=== PATIENT | female | born 1935 | race Two or more races ===

== ENCOUNTER 2022-02-04 11:21 | Emergency (ER) | payer MEDICAID, OTHER ==
[~2022-02-04] VITALS: Ht 147.3 cm; Wt 44.5 kg
--- NOTE | 2022-02-04 11:30 | NUR ---
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 ON 2 LPM VIA NC. ALERT AND ORIENTED X 4. DENIES ANY PAIN AT THIS TIME. KEPT COMFORTABLE, WILL CONTINUE TO MONITOR ACCORDINGLY. CONNECTED TO THE MONITOR AND PULSE OX.
[2022-02-04] MEDS ORDERED: MEGE40TA5 PO (12:00)
[2022-02-04] MEDS ORDERED: AMLO2.5T4 PO (12:00)
[2022-02-04] MEDS ORDERED: LISI40TA13 PO (12:00)
[2022-02-04] MEDS ORDERED: *INS REG3 IJ (12:00)
[2022-02-04] MEDS ORDERED: ASPI-1169 PO (12:00)
[2022-02-04] MEDS ORDERED: ATOR80TA PO (12:00)
[2022-02-04] MEDS ORDERED: SENN-175 PO (12:00)
--- NOTE | 2022-02-04 12:00 | NUR ---
MOVE SHEET SUBMITTED.
--- NOTE | 2022-02-04 12:20 | NUR ---
Covid swab collected and sent to lab
--- NOTE | 2022-02-04 12:28 | NUR ---
urine collected and sent to lab
[2022-02-04 12:32] LABS: ALANINE AMINOTRANSFERASE 39 U/L (12-78); ALBUMIN 2.9 g/dL (3.4-5.0); ALKALINE PHOSPHATASE 89 U/L (46-116); ASPARTATE AMINOTRANSFERASE 37 U/L (15-37); BILIRUBIN,DIRECT 0.1 mg/dL (0.0-0.2); BILIRUBIN,TOTAL 0.3 mg/dL (0.2-1.0); CALCIUM, SERUM 8.8 mg/dL (8.5-10.1); CARBON DIOXIDE 27 mmol/L (21-32); CHLORIDE 92 mmol/L (98-107); CREATININE 2.8 mg/dL (0.6-1.3); GLUCOSE 291 mg/dL (74-106); LIPASE 144 U/L (73-393); POTASSIUM 4.4 mmol/L (3.5-5.1); SODIUM SERUM 130 mmol/L (136-145); TOTAL PROTEIN, SERUM 7.3 g/dL (6.4-8.2); UREA NITROGEN, BLOOD 39 mg/dL (7-18)
--- NOTE | 2022-02-04 12:37 | NUR ---
LAB CALLED [facility]
--- NOTE | 2022-02-04 12:45 | NUR ---
Wheeled patient via [place] accompanied by [facility] for ct.
--- NOTE | 2022-02-04 13:01 | NUR ---
patient came back from ct
[2022-02-04 13:05] LABS: BASOPHILS % (AUTO) 0.4 % (0.0-2.0); EOSINOPHILS % (AUTO) 0.7 % (0.0-6.0); HEMATOCRIT 36 % (33-45); HEMOGLOBIN 12.1 g/dL (11.5-14.8); LYMPHOCYTES # (AUTO) 1.8 K/uL (0.8-4.8); LYMPHOCYTES % (AUTO) 19.3 % (20.0-44.0); MEAN CORPUSCULAR HGB CONC 34 g/dl (31.0-36.0); MEAN CORPUSCULAR VOLUME 92 fL (82-100); MONOCYTES # (AUTO) 0.9 K/uL (0.1-1.30); MONOCYTES % (AUTO) 9.2 % (2.0-12.0); NEUTROPHILS # (AUTO) 6.6 K/uL (1.8-8.9); NEUTROPHILS % (AUTO) 70.4 % (43.0-81.0); PLATELET COUNT (AUTO) 264 K/uL (150-450); WHITE BLOOD COUNT (AUTO) 9.4 K/uL (4.3-11.0)
--- NOTE | 2022-02-04 13:15 | NUR ---
RECEIVING MD DR GARCIAS SPOKE WITH DR GOMEZ AND WANTS REPEAT TROPONIN AT 1500 PRIOR TO TRANSFER
[2022-02-04 13:30] LABS: BILIRUBIN,URINE NEGATIVE (NEGATIVE); COLOR,URINE YELLOW (YELLOW); LEUKOCYTE ESTERASE ,URINE MODERATE (NEGATIVE); NITRITE, URINE NEGATIVE (NEGATIVE); PROTEIN,URINE TRACE mg/dl (NEGATIVE); UGLUCOSE NEGATIVE (NEGATIVE); UROBILINOGEN,URINE 0.2 EU/dL (0.2)
--- NOTE | 2022-02-04 13:34 | NUR ---
BRIDGET FROM [facility] REQUESTING FACE SHEET TO FAX IS [phone] TEL #
[2022-02-04 13:53] LABS: BACTERIA,URINE Moderate /HPF (None Seen); WBC,URINE 51-80 /HPF (0-3)
[2022-02-04 13:54] LABS: SQUAMOUS EPITHELIAL CELL,UR Few /HPF (None Seen)
--- NOTE | 2022-02-04 17:04 | NUR ---
PT ACCEPTED TO [facility] UNDER DR. GARCIAS ROOM 638-A PLEASE CALL [phone] FOR REPORT. WILL [facility] TRANSPORT AND CALL US BACK.
--- NOTE | 2022-02-04 17:12 | NUR ---
BR[facility]GET CALLED PT BEING TRANPORT WITH [facility] AT 2030.
--- NOTE | 2022-02-04 19:02 | NUR ---
BHARTI DE LA GARZA CALLED NEW ETA 2200 PER MARBELLA
--- NOTE | 2022-02-04 19:07 | NUR ---
report given to Elian KHAN to continue care.
[2022-02-04] MEDS ORDERED: CEFTRIAXONE 1GM BAG (ER ONLY) 50 ML IV ONE (19:55)
[2022-02-04] MEDS ORDERED: IV NS 0.9% 500 ML BAG IV ONE ×2 (20:00→21:30)
[2022-02-04] MEDS ORDERED: CEFTRIAXONE 1GM BAG (ER ONLY) 1 GM/50 ML PIGGYBACK IV ONE (20:00)
--- NOTE | 2022-02-04 20:42 | NUR ---
report given to fara
[2022-02-04 22:06] VITALS: BP 95/54
--- NOTE | 2022-02-04 22:06 | NUR ---
PATIENT BEING TRANSFERRED BACK TO [facility].
--- NOTE | 2022-02-04 22:06 | NUR ---
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
--- NOTE | 2022-02-04 22:06 | NUR ---
PT PICKED UP BY [facility] TO TRANSFER TO [facility]/ BEDSIDE REPORT GIVEN TO BIT SHAVER AND PT CHART PROVIDED TO BIT SHAVER. V/S STABLE AT TIME OF TRANSFER.
== END 2022-02-04 22:10 | disposition short-term general hospital (02) ==
LOC: ER 11:29
DX: I21.4 Non-ST elevation (NSTEMI) myocardial infarction (principal); R11.2 Nausea with vomiting, unspecified; K92.0 Hematemesis; Z20.822 Contact with and (suspected) exposure to COVID-19; E78.5 Hyperlipidemia, unspecified; Z86.73 Personal history of transient ischemic attack (TIA), and cerebral infarction without residual deficits; I07.1 Rheumatic tricuspid insufficiency; Z79.82 Long term (current) use of aspirin; E11.65 Type 2 diabetes mellitus with hyperglycemia; N19 Unspecified kidney failure; N39.0 Urinary tract infection, site not specified
CPT/HCPCS: 36415; 74176; 80048; 80076; 81001; 83690; 84484 ×2; 85025; 85730; 87077; 87081; 87086; 87186; 87426; 93005; 96365; 99291; C9803; J0696; J7040 ×2